=== PATIENT | male | born 1955 | race Two or more races ===

== ENCOUNTER 2021-05-20 06:58 | Day surgery (SDC) | payer OTHER, MEDICAID ==
[~2021-05-20] VITALS: Ht 180.3 cm; Wt 83.5 kg
[~2021-05-20 06:58] MED LIST: ATOR20TA PO; DRON400T PO; LISI20TA28 PO; RIVA20TA PO; TAMS0.4C36 PO
[2021-05-20] MEDS ORDERED: NITROGLYCERIN 5MG/ML 10ML VIAL IV ONE (09:00)
[2021-05-20] MEDS ORDERED: ANGIOMAX 250 MG VIAL IV ONE (09:14)
[2021-05-20] MEDS ORDERED: HEPARIN SODIUM (PORCINE) 5000 UNITS/ML 1ML VIAL ONE (09:14)
[2021-05-20] MEDS ORDERED: SODIUM CHL 0.9% 50 ML ONE (09:15)
[2021-05-20] MEDS ORDERED: fentaNYL CITRATE 100 MCG/2 ML VL ONE (09:15)
[2021-05-20] MEDS ORDERED: MIDAZOLAM HCL 2MG/2ML 2ml VIAL (1mg/ml) ONE (09:15)
[2021-05-20] MEDS ORDERED: VERAPAMIL 2.5MG/ML INJ 2ML VIAL IV ONE (09:15)
[2021-05-20] MEDS ORDERED: LIDOCAINE 2%HCL (LOCAL ANESTH.) INJ 10ml MDV ONE (09:16)
[2021-05-20] MEDS ORDERED: IODIXANOL 320MG/ML 100ML BTL IV ONE ×2 (09:16→10:09)
[2021-05-20] MEDS ORDERED: CLOPIDOGREL 300 MG TAB ONE (10:16)
[2021-05-20] MEDS ORDERED: ASPirin 325 MG TAB ONE (10:17)
== END 2021-05-20 16:00 | disposition home or self-care (01) ==
LOC: CATH 06:58
PROVIDERS: ATTEND Internal Medicine Cardiovascular Disease
DX: R94.39 Abnormal result of other cardiovascular function study (principal); I25.10 Atherosclerotic heart disease of native coronary artery without angina pectoris; I48.91 Unspecified atrial fibrillation; I10 Essential (primary) hypertension; E78.5 Hyperlipidemia, unspecified; I49.5 Sick sinus syndrome; Z20.822 Contact with and (suspected) exposure to COVID-19
CPT/HCPCS: 93458; 93571; C1726; C1769; C1874; C1887; C1894; C9600; J0583; J1644; J2001; J2250; J3010; Q9967; U0003; 45378; 45380; 99152; 99153; J3490

== ENCOUNTER 2021-06-19 00:28 | Emergency (ER) | payer OTHER, MEDICAID ==
[~2021-06-19] VITALS: Ht 180.3 cm; Wt 72.6 kg
[2021-06-19] MEDS ORDERED: IOHEXOL 350 MG/ML 100ML IJ ONE (01:44)
[2021-06-19] MEDS ORDERED: ONDANSETRON HCL 4 MG/2 ML VIAL IV ONE (01:45)
[2021-06-19] MEDS ORDERED: HYDROmorphone HCL 2 MG/ML VL/or syr IV ONE ×2 (01:45→06:45)
[2021-06-19 02:12] LABS: Basophils # (auto) 0 10 ^3/uL (0-0.2); Basophils % (auto) 0.4 % (0.0-2.0); Eosinophils # (auto) 0 10 ^3/uL (0-0.8); Hematocrit 36.3 % (41.0-53.0); Hemoglobin 12.4 g/dL (13.5-17.5); Lymphocytes # (auto) 0.7 10 ^3/uL (0.4-5.4); Lymphocytes % (auto) 6.4 % (10.0-50.0); Mean Corpuscular Hemoglobin 32.9 pg (28.0-32.0); Mean Corpuscular Hgb Conc. 34.3 g/dL (32.0-36.0); Mean Corpuscular Volume 95.9 fL (80.0-100.0); Monocytes # (auto) 0.4 10 ^3/uL (0-1.3); Monocytes % (auto) 3.4 % (0.0-12.0); Neutrophils # (auto) 9.9 10 ^3/uL (1.6-8.6); Neutrophils % (auto) 89.8 % (37.0-80.0); Red Blood Cells 3.78 10^6/uL (4.5-5.90); Red Cell Distribution Width 13.2 % (11.8-14.3)
[2021-06-19 02:19] LABS: Albumin 3.8 g/dL (3.4-5.0); BUN/Creatinine Ratio 16.2; Calcium 8.9 mg/dL (8.5-10.1); Potassium 4.1 mmol/L (3.5-5.1)
[2021-06-19 02:22] LABS: Bilirubin, Total 0.9 mg/dL (0.2-1.0); Total Protein 6.2 g/dL (6.4-8.2)
[2021-06-19] MEDS ORDERED: SODIUM CHLORIDE 0.9% 500 ML IV ONE (06:45)
[2021-06-19] MEDS ORDERED: PIPERACILLIN-TAZOB 3.375GM 100 ML IV ONE (06:45)
[2021-06-19 07:11] LABS: INR 1.34 (0.9-1.15)
[2021-06-19] MEDS ORDERED: PROTHROMBIN COMPLEX CONCENTRATE IV ONE (08:15)
[2021-06-19 10:33] VITALS: BP 108/65
== END 2021-06-19 11:05 | disposition short-term general hospital (02) ==
LOC: EDBD 00:28 → ER 00:30
DX: S30.1XXA Contusion of abdominal wall, initial encounter (principal); E78.5 Hyperlipidemia, unspecified; I10 Essential (primary) hypertension; X58.XXXA Exposure to other specified factors, initial encounter; Y93.39 Activity, other involving climbing, rappelling and jumping off; Y92.89 Other specified places as the place of occurrence of the external cause; Y99.8 Other external cause status
CPT/HCPCS: 36415; 71045; 75635; 80053; 83880; 84484; 85025; 85610; 86850; 86900; 86901; 96365; 96375; 99285; C9132; J1170; J2405; J2543; Q9967; 93005

== ENCOUNTER 2022-07-07 08:59 | Emergency (ER) | payer OTHER, MEDICAID ==
[~2022-07-07] VITALS: Ht 180.3 cm; Wt 77.0 kg
[2022-07-07 09:44] LABS: Basophils # (auto) 0 10 ^3/uL (0-0.2); Basophils % (auto) 0.6 % (0.0-2.0); Eosinophils # (auto) 0 10 ^3/uL (0-0.8); Eosinophils % (auto) 0.4 % (0.0-7.0); Hematocrit 49.6 % (41.0-53.0); Hemoglobin 16.7 g/dL (13.5-17.5); Lymphocytes # (auto) 1.4 10 ^3/uL (0.4-5.4); Lymphocytes % (auto) 32.4 % (10.0-50.0); Mean Corpuscular Hemoglobin 32.7 pg (28.0-32.0); Mean Corpuscular Hgb Conc. 33.8 g/dL (32.0-36.0); Mean Corpuscular Volume 96.8 fL (80.0-100.0); Monocytes # (auto) 0.5 10 ^3/uL (0-1.3); Monocytes % (auto) 12.6 % (0.0-12.0); Neutrophils # (auto) 2.3 10 ^3/uL (1.6-8.6); Nucleated Red Blood Cells % 0.4 %; Red Blood Cells 5.12 10^6/uL (4.5-5.90); Red Cell Distribution Width 13.4 % (11.8-14.3); White Blood Cell 4.2 10^3/uL (4.4-10.8)
[2022-07-07 10:04] LABS: Albumin 4.5 g/dL (3.4-5.0); Potassium 3.8 mmol/L (3.5-5.1)
[2022-07-07 10:09] LABS: BUN/Creatinine Ratio 15.8 (10.0-20.0); Total Protein 7.9 g/dL (6.4-8.2)
[2022-07-07] MEDS ORDERED: dilTIAZem 25 MG/5 ML VIAL IV ONE ×2 (10:30→11:05)
[2022-07-07] MEDS ORDERED: dilTIAZem 125 MG/25ML INJ VIAL IV ONE (10:30)
[2022-07-07 11:37] LABS: Urine Bacteria NONE SEEN /hpf (None Seen); Urine Blood Negative /uL (Negative); Urine Hyaline Cast FEW /lpf (0 - 2); Urine Mucus FEW (None Seen); Urine Specific Gravity 1.015 (1.001-1.035); Urine WBC 1 /hpf (0 - 3)
[2022-07-07] MEDS: METOPROLOL TARTRATE 1MG/1ML-5ML VIAL IV SCH ×3 (11:50→12:12)
[2022-07-07 12:00] VITALS: BP 113/75
== END 2022-07-07 15:09 | disposition home or self-care (01) ==
LOC: ER 08:59
DX: J06.9 Acute upper respiratory infection, unspecified (principal); I48.91 Unspecified atrial fibrillation; E78.5 Hyperlipidemia, unspecified; I25.10 Atherosclerotic heart disease of native coronary artery without angina pectoris; I10 Essential (primary) hypertension; Z95.0 Presence of cardiac pacemaker; Z20.822 Contact with and (suspected) exposure to COVID-19
CPT/HCPCS: 36415; 71045; 80053; 81001; 83880; 84484; 85025; 85379; 87426; 87804; 93005; 96374